=== PATIENT | female | born 1965 | race Caucasian/White ===

== ENCOUNTER 2018-08-19 15:04 | Emergency (ER) | payer OTHER ==
[~2018-08-19] VITALS: Ht 170.1 cm; Wt 99.3 kg
[~2018-08-19 15:04] MED LIST: AMOXICILLIN500 MG PO; AMOXIL500 MG PO; ANTIVERT/2525 MG PO; ASPIR LOW81 MG PO; BENADRYL25 M2 PO; CEPHALEXIN500 M1 PO; CLARITIN10 MG PO; FLEXERIL10 MG PO; FLONASE0.05 MG/AC NS; HYDROCODONE BIT1 T11 PO; MEDROL DOSEPAK4 MG PO; MOTRIN800 MG PO; NAPROSYN500 MG PO; PREDNICOT20 MG PO; PREDNISONE20 M1 PO; SUDAFED30 MG PO; THE MEDICINE S400 IU PO; ZANTAC 150150 MG PO; ZITHROMAX Z PA250 MG PO; ZOFRAN4 MG PO
[2018-08-19 15:07] VITALS: BP 121/56
[2018-08-19] MEDS ORDERED: VICODIN 5-3001 EACH PO (16:07)
== END 2018-08-19 18:45 | disposition home or self-care (01) ==
LOC: ED 15:04
DX: M25.561 Pain in right knee (principal); Z88.2 Allergy status to sulfonamides; Z79.82 Long term (current) use of aspirin; Z91.030 Bee allergy status; Z91.041 Radiographic dye allergy status; W22.8XXA Striking against or struck by other objects, initial encounter; X50.1XXA Overexertion from prolonged static or awkward postures, initial encounter; Y93.89 Activity, other specified; Y92.89 Other specified places as the place of occurrence of the external cause; Y99.0 Civilian activity done for income or pay

== ENCOUNTER 2019-06-13 02:48 | Inpatient (IN) | payer BC ==
[2019-06-13] VITALS (10 sets, daily range): BP systolic 112–152; BP diastolic 53–74
[~2019-06-13] VITALS: Ht 167.6 cm; Wt 96.7 kg
[~2019-06-13 02:48] MED LIST changes: +VICODIN 5-3001 EACH PO
[2019-06-13 04:03] LABS: BASO # 0.1 10*3/uL (0.0-0.1); BASO % 0.8 % (0.0-1.0); EOS # 0.2 10*3/uL (0.0-0.4); EOS % 3.5 % (1.0-4.0); HEMATOCRIT 43.1 % (37.0-47.0); HEMOGLOBIN 14.8 g/dl (12.0-16.0); LYMPH # 2.7 10*3/uL (1.3-4.4); LYMPH % 40.8 % (27.0-41.0); MEAN CELL VOLUME 90.2 fl (81.0-99.0); MEAN CORPUSCULAR HGB CONC 34.3 g/dl (33.0-37.0); MEAN PLATELET VOLUME 11.8 fl (9.6-12.3); MONO # 0.8 10*3/uL (0.1-1.0); MONO % 11.6 % (3.0-9.0); NEUT # 2.8 10*3/uL (2.3-7.9); NEUT % 42.8 % (47.0-73.0); PLATELET COUNT AUTOMATED 248 10*3/uL (130-400); RED BLOOD COUNT 4.78 10*6/uL (4.10-5.10); RED CELL DISTRI WIDTH 12.8 % (0-14.5); WHITE BLOOD COUNT 6.5 10*3/uL (4.8-10.8)
[2019-06-13 04:12] LABS: INTERNATIONAL NORM RATIO 0.9 (2.0-3.5)
[2019-06-13 04:19] LABS: ALBUMIN 3.6 gm/dl (3.1-4.5); ALKALINE PHOSPHATASE 111 U/L (45-117); BUN 20 mg/dl (7-24); CHLORIDE 107 mmol/L (98-107); CREATININE 1.06 mg/dL (0.55-1.02); POTASSIUM 4.1 mmol/L (3.5-5.1); SGOT/AST 11 IU/L (3-35); SGPT/ALT 29 U/L (12-78); SODIUM 140 mmol/L (136-145); TOTAL PROTEIN 7.3 gm/dL (6.4-8.2); TROPONIN I < 0.015 ng/ml (<0.045)
--- NOTE | 2019-06-13 06:31 | NUR ---
PT STATES SHE JUST REMEMBERED THAT LAST EVENING WHEN SHE STARTED TO HAVE THE HEAVINESS AND INTERMITTANT CHEST PAIN/HEART RACING THAT HER BACK WAS ALSO HURTING RIGHT BELOW BOTH SHOULDER BLADES, RIGHT BEFORE PAIN STARTED.
--- NOTE | 2019-06-13 08:22 | NUR ---
PT RESTING IN BED NO DISTRESS NOTED
[2019-06-13] MEDS ORDERED: ASPIR-TRIN325 MG PO (10:07)
--- NOTE | 2019-06-13 10:22 | NUR ---
[facility] 54, admitted to , under the services of Dr. FRAN BOWEN,KAUSHIK Florez with a diagnosis of CHEST PAIN . Chief complaint is CHEST HEAVINESS. Patient arrived via wheel chair from ER. Monitor applied. Initial assessment completed. Vital signs taken and recorded. DR. FRAN BOWEN,KAUSHIK Florez notified of admission to the unit. Orders received. See assessment for past medical history, medications and allergies. Patient and/or family oriented to unit. [facility] reviewed. Clothing/patient valuable form completed. CLINTON VILLALBA
--- NOTE | 2019-06-13 10:29 | NUR ---
MESSAGE LEFT WITH CARDIOLOGY IN REFERANCE TO CONSULT.
--- NOTE | 2019-06-14 06:38 | NUR ---
24 HR chart check completed.
--- NOTE | 2019-06-14 09:00 | NUR ---
Art Editor in to talk to patient. Patient states lives at home alone with her family checking in on her. There are 3 steps in the home. Physician: Dr. Donald Ledesma [facility]: [facility] Home health services: none Patient's level of ADLs: INDEPENDENT Patient has working utilities: yes DME: none Follow-up physician's appointment after d/c: she prefers to make her own follow up appt after discharge Does patient want to access PORTAL?: no Discharge plan discussed with patient. She lives at home alone with her family checking in on her. She is independent in her ADLs and ambulation. Discussed home health care services and she denies any home needs at this time. When medically stable she will be discharged to home. 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 [facility]
--- NOTE | 2019-06-14 10:00 | NUR ---
INFORMED CONSENT OBTAINED FOR A LEXISCAN STRESS TEST WITH DR. PETERS. RESTING EKG NSR WITH A HT RT OF 78 AND A BP OF 108/88. BREATH SOUNDS CLEAR MAYNOR WITH A POX OF 97% VIA RA. COMPLETED ONE MINUTE OF A LEXISCAN PROTOCOL RECEIVING LEXISCAN 0.4 MG OVER 10 SECONDS. DEVELOPED LIGHTHEADEDNESS AND A HEADACHE THAT WAS RELIEVED IN RECOVERY. HAD A PEAK HT R TOF 116, WITH A BP OF 118/68. LAST RECOVERY HT RT OF 95, WITH A BP OF 122/80. AWAITING NUCLEAR IMAGING IN STABLE CONDITION.
--- NOTE | 2019-06-14 12:50 | NUR ---
DR PETERS NOTIFIED OF STRESS TEST RESULTS PER DR RUGGIERO'S REQUEST.D/C ORDER RECIEVED PREVIOUSLY DEPENDING ON RESULTS.PT STRESS NEGATIVE.
--- NOTE | 2019-06-14 13:42 | NUR ---
Patient discharged to home, instructions given to f/u with PCP in 7 days. Return to work slip given. Discharge time 1340
== END 2019-06-14 13:42 | disposition home or self-care (01) | DRG 206 ==
LOC: ED 02:48 → EDHOLD 04:44 → 4E 04:44
PROVIDERS: Emergency Medicine; ADMIT Internal Medicine
PROC: 4A02XM4 Measurement of Cardiac Total Activity, External Approach (ICD-10-PCS; principal; 2019-06-14)
PROC: 3E073KZ Introduction of Other Diagnostic Substance into Coronary Artery, Percutaneous Approach (ICD-10-PCS; principal; 2019-06-14)
DX: M94.0 Chondrocostal junction syndrome [Tietze] (principal); N28.9 Disorder of kidney and ureter, unspecified; I48.91 Unspecified atrial fibrillation; E66.9 Obesity, unspecified; R00.2 Palpitations; R73.9 Hyperglycemia, unspecified; G25.81 Restless legs syndrome; Z85.528 Personal history of other malignant neoplasm of kidney; Z85.42 Personal history of malignant neoplasm of other parts of uterus; Z86.74 Personal history of sudden cardiac arrest; Z95.0 Presence of cardiac pacemaker; I25.2 Old myocardial infarction; Z91.030 Bee allergy status; Z88.2 Allergy status to sulfonamides; Z91.041 Radiographic dye allergy status; Z90.710 Acquired absence of both cervix and uterus; Z83.3 Family history of diabetes mellitus; Z82.49 Family history of ischemic heart disease and other diseases of the circulatory system; Z82.3 Family history of stroke; Z80.1 Family history of malignant neoplasm of trachea, bronchus and lung; Z79.82 Long term (current) use of aspirin; Z68.34 Body mass index [BMI] 34.0-34.9, adult